=== PATIENT | male | born 1930 | race Caucasian/White ===

== ENCOUNTER 2018-01-12 06:48 | Day surgery (SDC) | payer OTHER ==
[2018-01-12] VITALS (15 sets, daily range): BP systolic 102–139; BP diastolic 53–68
[~2018-01-12] VITALS: Ht 182.9 cm; Wt 95.8 kg
[~2018-01-12 06:48] MED LIST: DOCU-28 PO
[2018-01-12] MEDS ORDERED: normal saline 1000ml 1,000 ML IV PRN (07:20)
[2018-01-12 08:03] LABS: BASOPHILS % (AUTO) 0.4 % (0-1); EOSINOPHILS # (AUTO) 0.2 X10'3 (0-0.9); EOSINOPHILS % (AUTO) 2.5 % (0-6); HEMOGLOBIN 11.8 g/dl (14.0-17.9); LYMPHOCYTES # (AUTO) 0.7 X10'3 (1.1-4.8); LYMPHOCYTES % (AUTO) 8.8 % (21-51); MEAN CORPUSCULAR HEMOGLOBIN 26.5 PG (27.0-31.0); MEAN CORPUSCULAR HGB CONC 32.8 % (33.0-36.5); MEAN CORPUSCULAR VOLUME 80.8 FL (78-98); MEAN PLATELET VOLUME 7.1 FL (7.4-10.4); MONOCYTES # (AUTO) 0.8 X10'3 (0-0.9); MONOCYTES % (AUTO) 10.8 % (2-12); NEUTROPHILS # (AUTO) 5.8 X10'3 (1.8-7.7); NEUTROPHILS % (AUTO) 77.5 % (42-75); PLATELET COUNT 356 X10'3 (140-440); RED BLOOD COUNT 4.46 X10'6 (4.70-6.10); RED CELL DISTRIBUTION WIDTH 16.5 % (11.5-14.5); WHITE BLOOD COUNT 7.4 X10'3 (4.5-11.0)
[2018-01-12] MEDS ORDERED: midazolam 2 mg/2 ml injection IV PRN (08:15)
[2018-01-12] MEDS ORDERED: fentaNYL/PF 50MCG/1 ML 2ML syringe IV PRN (08:15)
[2018-01-12] MEDS ORDERED: LIDOcaine 1%/PF 5ML 10 MG/ML VIAL SQ ONE (08:15)
[2018-01-12] MEDS ORDERED: FLO0.4C PO (08:17)
[2018-01-12] MEDS ORDERED: VALS1TAB81 PO (08:17)
[2018-01-12] MEDS ORDERED: PANT40SU2 PO (08:17)
[2018-01-12] MEDS ORDERED: MONT10TA21 PO (08:17)
[2018-01-12] MEDS ORDERED: AMLO2.5T2 PO (08:17)
[2018-01-12] MEDS ORDERED: ROSU5TAB PO (08:17)
[2018-01-12] MEDS ORDERED: ACET-896 PO (08:17)
[2018-01-12] MEDS ORDERED: CLOP75TA15 PO (08:17)
[2018-01-12] MEDS ORDERED: midazolam 2 mg/2 ml injection ONE (08:55)
[2018-01-12] MEDS ORDERED: LIDOcaine 1%/PF 5ML 10 MG/ML VIAL ONE (08:55)
[2018-01-12] MEDS ORDERED: fentaNYL/PF 50MCG/1 ML 2ML syringe ONE (08:55)
[2018-01-12] MEDS ORDERED: HYDROcodone/acetaminophen 5mg/325mg tablet PO PRN (09:30)
== END 2018-01-12 11:50 | disposition home or self-care (01) ==
LOC: SSTAY O 06:48
PROVIDERS: ATTEND Radiology Diagnostic Radiology
DX: N28.89 Other specified disorders of kidney and ureter (principal); E78.5 Hyperlipidemia, unspecified; I10 Essential (primary) hypertension; K21.9 Gastro-esophageal reflux disease without esophagitis; M19.90 Unspecified osteoarthritis, unspecified site; Z88.0 Allergy status to penicillin; Z79.891 Long term (current) use of opiate analgesic; Z86.73 Personal history of transient ischemic attack (TIA), and cerebral infarction without residual deficits; Z87.891 Personal history of nicotine dependence; Z87.442 Personal history of urinary calculi; Z96.651 Presence of right artificial knee joint; Z72.89 Other problems related to lifestyle; Z98.890 Other specified postprocedural states; Z79.899 Other long term (current) drug therapy
CPT/HCPCS: 36415; 50200; 77012; 85025; 99152; 99153; J2001; J2250; J3010; J7030

== ENCOUNTER 2018-10-03 07:24 | Inpatient (IN) | payer OTHER ==
[~2018-10-03] VITALS: Ht 177.8 cm; Wt 85.0 kg
[~2018-10-03 07:24] MED LIST changes: +ACET-896 PO; +AMLO2.5T2 PO; +CLOP75TA15 PO; -DOCU-28 PO; +FLO0.4C PO; +MONT10TA21 PO; +PANT40SU2 PO; +ROSU5TAB PO; +VALS1TAB81 PO
[2018-10-03] MEDS ORDERED: acetaminophen 325mg tablet PO ONE (07:40)
[2018-10-03 09:20] LABS: BASOPHILS % (AUTO) 0.4 % (0-1); EOSINOPHILS # (AUTO) 0.1 X10'3 (0-0.9); EOSINOPHILS % (AUTO) 0.7 % (0-6); HEMATOCRIT 27.8 % (42.0-52.0); HEMOGLOBIN 9.4 g/dl (14.0-17.9); LYMPHOCYTES # (AUTO) 0.3 X10'3 (1.1-4.8); LYMPHOCYTES % (AUTO) 2.9 % (21-51); MEAN CORPUSCULAR HEMOGLOBIN 30.8 PG (27.0-31.0); MEAN CORPUSCULAR HGB CONC 33.7 g/dL (33.0-36.5); MEAN CORPUSCULAR VOLUME 91.3 FL (78-98); MEAN PLATELET VOLUME 6.9 FL (7.4-10.4); MONOCYTES % (AUTO) 8.6 % (2-12); NEUTROPHILS # (AUTO) 10.1 X10'3 (1.8-7.7); NEUTROPHILS % (AUTO) 87.4 % (42-75); PLATELET COUNT 226 X10'3 (140-440); RED BLOOD COUNT 3.04 X10'6 (4.70-6.10); RED CELL DISTRIBUTION WIDTH 13.5 % (11.5-14.5); WHITE BLOOD COUNT 11.5 X10'3 (4.5-11.0)
[2018-10-03 09:21] LABS: CLARITY,URINE CLOUDY (Clear); COLOR,URINE YELLOW (Yellow); GLUCOSE, URINE NEGATIVE (Neg); KETONES,URINE NEGATIVE (Neg); LEUKOCYTE ESTERASE ,URINE LARGE (Neg); NITRITES, URINE NEGATIVE (Neg); OCCULT BLOOD,URINE LARGE (Neg); PH,URINE 5.5 (4.8-8.0); PROTEIN,URINE 30 mg/dl (Neg); UROBILINOGEN,URINE 0.2 E.U/dL (0.2-1.0)
[2018-10-03 09:28] LABS: UA COLLECTION TYPE FOLEY CATH
[2018-10-03 09:29] LABS: BACTERIA,URINE FEW /HPF (Neg); WBC,URINE 50-100 /HPF (0-4)
[2018-10-03 09:30] LABS: MUCUS STRANDS NONE SEEN /LPF (Neg); SQUAMOUS EPITHELIAL CELL,UR NONE SEEN /LPF (FEW); YEAST MANY /HPF (NEGATIVE)
[2018-10-03 09:33] LABS: INR 1.1 INR; PARTIAL THROMBOPLASTIN TIME 30 SECONDS (22-32)
[2018-10-03 09:35] LABS: ALANINE AMINOTRANSFERASE 60 U/L (12-78); ALBUMIN 2.2 G/DL (3.4-5.0); ALBUMIN/GLOBULIN RATIO 0.6 (1.1-1.5); ALKALINE PHOSPHATASE 153 IU/L (46-116); ANION GAP 7 (8-16); ASPARTATE AMINO TRANSFERASE 35 U/L (10-37); BILIRUBIN,TOTAL 0.6 MG/DL (0.1-1.0); BLOOD UREA NITROGEN 41 MG/DL (7-18); CALCIUM 9.7 MG/DL (8.5-10.1); CHLORIDE 100 MMOL/L (99-107); CREATININE 1.71 MG/DL (0.60-1.10); GLUCOSE 149 MG/DL (70-104); POTASSIUM 4.8 MMOL/L (3.5-5.1); SODIUM 132 MMOL/L (135-145); TOTAL CARBON DIOXIDE 25.5 MMOL/L (24-32); eGFR 38 ML/MIN
[2018-10-03 09:37] LABS: TROPONIN I < 0.04 NG/ML (0.0-0.05)
[2018-10-03] MEDS ORDERED: normal saline 1000ml 1,000 ML IV ONE (10:05)
[2018-10-03] MEDS ORDERED: levoFLOXACIN-Levaquin 750MG/D5 150 ML IV ONE (10:05)
[2018-10-03] MEDS ORDERED: mag hydrox/Alum hydrox/simeth 30ml oral suspension PO PRN (10:55)
[2018-10-03] MEDS ORDERED: magnesium 4gm in 100ml NS 100 ML IV PRN (10:55)
[2018-10-03] MEDS ORDERED: potassium Cl 20 mEq SR tablet PO PRN ×2 (10:55)
[2018-10-03] MEDS ORDERED: magnesium 2GM in 50ml NS 50 ML IV PRN (10:55)
[2018-10-03] MEDS ORDERED: potassium Cl 40MEQ/NS 500ml 500 ML IV PRN ×2 (10:55)
[2018-10-03] MEDS ORDERED: magnesium hydroxide 30ml (MOM) UD suspension PO PRN (10:55)
[2018-10-03] MEDS ORDERED: HYDROcodone/acetaminophen 5mg/325mg tablet PO PRN (10:55)
[2018-10-03] MEDS ORDERED: ondansetron/PF 4mg/2ml inj IV PRN (10:55)
[2018-10-03] MEDS ORDERED: bisacodyl 10mg suppository rectal RC PRN (10:55)
--- NOTE | 2018-10-03 10:57 | NUR ---
I have received patient report from [facility] RN
[2018-10-03 11:25] VITALS: BP 106/57
[2018-10-03] MEDS ORDERED: PRED10TA23 PO (11:53)
[2018-10-03] MEDS ORDERED: ASPI81TA52 PO (11:54)
[2018-10-03] MEDS ORDERED: DIPH-915 PO (11:57)
[2018-10-03] MEDS ORDERED: pneumococcal 23-VAL P-sac vacc 25 mcg/0.5ml vial IMVAC ONE (13:00)
[2018-10-03 16:30] VITALS: BP_SYST 114; BP_SYST 133; BP_DIAS 48; BP_DIAS 53
[2018-10-03] MEDS ORDERED: non-formulary drug (Acetaminophen (Tylenol) 1 TAB) PO SCH (17:00)
--- NOTE | 2018-10-03 17:33 | NUR ---
Dr. Kessler said okay not to use scd's since patient had recent dvt in right thigh, patient will be on lovenox.
[2018-10-03 18:00] VITALS: BP 110/45
[2018-10-03] MEDS ORDERED: acetaminophen 325mg tablet PO PRN (18:10)
--- NOTE | 2018-10-03 18:15 | NUR ---
patient report given to Elizabeth ASIF
[2018-10-03] MEDS: normal saline 1000ml 1,000 ML IV SCH (19:17)
[2018-10-03] MEDS: docusate sod 100mg capsule PO SCH (19:17)
[2018-10-03 20:00] VITALS: BP_SYST 118; BP_SYST 128; BP_SYST 131; BP_DIAS 44; BP_DIAS 47; BP_DIAS 48
[2018-10-04 06:08] LABS: BASOPHILS % (AUTO) 0.2 % (0-1); EOSINOPHILS # (AUTO) 0.1 X10'3 (0-0.9); EOSINOPHILS % (AUTO) 0.6 % (0-6); HEMATOCRIT 23.9 % (42.0-52.0); HEMOGLOBIN 8.2 g/dl (14.0-17.9); LYMPHOCYTES # (AUTO) 0.3 X10'3 (1.1-4.8); LYMPHOCYTES % (AUTO) 3.3 % (21-51); MEAN CORPUSCULAR HEMOGLOBIN 31.2 PG (27.0-31.0); MEAN CORPUSCULAR HGB CONC 34.1 g/dL (33.0-36.5); MEAN CORPUSCULAR VOLUME 91.3 FL (78-98); MEAN PLATELET VOLUME 7.1 FL (7.4-10.4); MONOCYTES # (AUTO) 0.8 X10'3 (0-0.9); MONOCYTES % (AUTO) 8.3 % (2-12); NEUTROPHILS # (AUTO) 8.3 X10'3 (1.8-7.7); NEUTROPHILS % (AUTO) 87.6 % (42-75); PLATELET COUNT 185 X10'3 (140-440); RED BLOOD COUNT 2.61 X10'6 (4.70-6.10); RED CELL DISTRIBUTION WIDTH 13.4 % (11.5-14.5); WHITE BLOOD COUNT 9.5 X10'3 (4.5-11.0)
[2018-10-04 06:22] LABS: ANION GAP 6 (8-16); BLOOD UREA NITROGEN 40 MG/DL (7-18); CHLORIDE 101 MMOL/L (99-107); CREATININE 1.49 MG/DL (0.60-1.10); GLUCOSE 147 MG/DL (70-104); POTASSIUM 4.2 MMOL/L (3.5-5.1); SODIUM 133 MMOL/L (135-145); TOTAL CARBON DIOXIDE 25.7 MMOL/L (24-32)
[2018-10-04 06:23] LABS: ALBUMIN 1.8 G/DL (3.4-5.0); BUN/CREATININE RATIO 26.8 (5.4-32.0); CALCIUM 8.9 MG/DL (8.5-10.1); MAGNESIUM 1.3 MG/DL (1.5-2.4); eGFR 45 ML/MIN
--- NOTE | 2018-10-04 06:28 | NUR ---
REPORT GIVEN TO YEFRI ALAN.
[2018-10-04] MEDS: normal saline 1000ml 1,000 ML IV SCH ×3 (06:57→20:11)
[2018-10-04 07:13] VITALS: BP 106/42
[2018-10-04] MEDS: docusate sod 100mg capsule PO SCH ×2 (07:28→20:05)
[2018-10-04] MEDS: tamsulosin 0.4mg capsule PO SCH (07:28)
[2018-10-04] MEDS: clopidogrel 75mg tablet PO SCH (07:28)
[2018-10-04] MEDS: montelukast 10mg tablet PO SCH (07:28)
[2018-10-04] MEDS: prednisone 10mg tablet PO SCH (07:28)
[2018-10-04] MEDS: pantoprazole 40mg Tablet.DR PO SCH (07:28)
[2018-10-04] MEDS: atorvastatin 20mg tablet PO SCH (07:28)
[2018-10-04] MEDS: aspirin 81mg tablet.DR PO SCH (07:28)
[2018-10-04] MEDS: K and/or MAG REPLACEMENT MC SCH (07:29)
[2018-10-04] MEDS: enoxaparin 40mg/0.4ml syringe SUBCUT SCH (07:30)
[2018-10-04] MEDS: magnesium Cl slow-release 64mg tablet PO PRN ×2 (07:30→20:06)
[2018-10-04 08:00] VITALS: BP_SYST 104; BP_SYST 110; BP_SYST 111; BP_DIAS 41; BP_DIAS 44
[2018-10-04] MEDS ORDERED: levoFLOXACIN-Levaquin 500mg/D5 100 ML IV SCH (08:00)
[2018-10-04 09:24] VITALS: BP 104/44
[2018-10-04 18:00] VITALS: BP 113/50
[2018-10-04] MEDS ORDERED: diphenhydrAMINE 25mg capsule PO PRN (19:45)
[2018-10-04 20:00] VITALS: BP_SYST 117; BP_SYST 133; BP_SYST 135; BP_DIAS 47; BP_DIAS 50; BP_DIAS 58
[2018-10-04 22:00] VITALS: BP 135/58
[2018-10-05 05:45] VITALS: BP 119/55
[2018-10-05] MEDS: acetaminophen 325mg tablet PO PRN (05:59)
[2018-10-05 06:17] LABS: BASOPHILS % (AUTO) 0.2 % (0-1); EOSINOPHILS # (AUTO) 0.1 X10'3 (0-0.9); EOSINOPHILS % (AUTO) 0.8 % (0-6); HEMATOCRIT 24.4 % (42.0-52.0); HEMOGLOBIN 8.1 g/dl (14.0-17.9); LYMPHOCYTES # (AUTO) 0.3 X10'3 (1.1-4.8); LYMPHOCYTES % (AUTO) 3.1 % (21-51); MEAN CORPUSCULAR HEMOGLOBIN 30.5 PG (27.0-31.0); MEAN CORPUSCULAR HGB CONC 33.2 g/dL (33.0-36.5); MEAN CORPUSCULAR VOLUME 91.9 FL (78-98); MONOCYTES # (AUTO) 0.7 X10'3 (0-0.9); NEUTROPHILS % (AUTO) 87.9 % (42-75); PLATELET COUNT 186 X10'3 (140-440); RED BLOOD COUNT 2.66 X10'6 (4.70-6.10); RED CELL DISTRIBUTION WIDTH 13.3 % (11.5-14.5); WHITE BLOOD COUNT 9.1 X10'3 (4.5-11.0)
--- NOTE | 2018-10-05 06:19 | NUR ---
Problems reprioritized. Patient report given, questions answered & plan of care reviewed with araceli Antony.
[2018-10-05 06:28] LABS: ALBUMIN 1.7 G/DL (3.4-5.0); ANION GAP 7 (8-16); BLOOD UREA NITROGEN 39 MG/DL (7-18); BUN/CREATININE RATIO 27.7 (5.4-32.0); CALCIUM 8.7 MG/DL (8.5-10.1); CHLORIDE 100 MMOL/L (99-107); CREATININE 1.41 MG/DL (0.60-1.10); GLUCOSE 150 MG/DL (70-104); MAGNESIUM 1.4 MG/DL (1.5-2.4); POTASSIUM 4.1 MMOL/L (3.5-5.1); SODIUM 130 MMOL/L (135-145); TOTAL CARBON DIOXIDE 23.2 MMOL/L (24-32); eGFR 48 ML/MIN
[2018-10-05] MEDS: K and/or MAG REPLACEMENT MC SCH (08:00)
[2018-10-05] MEDS: montelukast 10mg tablet PO SCH ×2 (08:59→20:07)
[2018-10-05] MEDS: pantoprazole 40mg Tablet.DR PO SCH (09:00)
[2018-10-05] MEDS: atorvastatin 20mg tablet PO SCH (09:00)
[2018-10-05] MEDS: aspirin 81mg tablet.DR PO SCH (09:00)
[2018-10-05] MEDS: lactobacillus rhamnosus 10,000 MMU CELLS/CAPSULE PO SCH ×2 (09:00→20:06)
[2018-10-05] MEDS: docusate sod 100mg capsule PO SCH ×2 (09:00→20:07)
[2018-10-05] MEDS: tamsulosin 0.4mg capsule PO SCH (09:00)
[2018-10-05] MEDS: sulfamethoxazole/trimethoprim DS (800/160mg) tablet PO SCH ×2 (09:01→20:07)
[2018-10-05] MEDS: clopidogrel 75mg tablet PO SCH (09:01)
[2018-10-05] MEDS: prednisone 10mg tablet PO SCH (09:01)
[2018-10-05] MEDS: enoxaparin 40mg/0.4ml syringe SUBCUT SCH (09:04)
[2018-10-05 10:00] VITALS: BP 123/72
[2018-10-05] MEDS: fluconazole-Diflucan 200mg/NS 100 ML IV SCH (10:59)
[2018-10-05] MEDS ORDERED: levoFLOXACIN 250mg tablet PO SCH (11:00)
--- NOTE | 2018-10-05 12:41 | NUR ---
Jewell baloon was deflated, repositioned, reinflated. After 30 minutes patient c/o leaking again. Bladder scan done for 366ml. New 18F catheter placed.
[2018-10-05] MEDS: normal saline 1000ml 1,000 ML IV SCH (15:00)
[2018-10-05 18:00] VITALS: BP 129/59
--- NOTE | 2018-10-05 19:34 | NUR ---
REPORT REC'D FROM YEFRI NUGENT.
[2018-10-05 22:00] VITALS: BP 132/54
[2018-10-06 05:53] LABS: BASOPHILS % (AUTO) 0.4 % (0-1); EOSINOPHILS # (AUTO) 0.1 X10'3 (0-0.9); EOSINOPHILS % (AUTO) 1.2 % (0-6); HEMATOCRIT 24.5 % (42.0-52.0); HEMOGLOBIN 8.3 g/dl (14.0-17.9); LYMPHOCYTES # (AUTO) 0.3 X10'3 (1.1-4.8); MEAN CORPUSCULAR HEMOGLOBIN 30.8 PG (27.0-31.0); MEAN CORPUSCULAR HGB CONC 33.7 g/dL (33.0-36.5); MEAN CORPUSCULAR VOLUME 91.3 FL (78-98); MEAN PLATELET VOLUME 7.2 FL (7.4-10.4); MONOCYTES # (AUTO) 0.6 X10'3 (0-0.9); MONOCYTES % (AUTO) 6.9 % (2-12); NEUTROPHILS % (AUTO) 88.5 % (42-75); PLATELET COUNT 192 X10'3 (140-440); RED BLOOD COUNT 2.69 X10'6 (4.70-6.10); RED CELL DISTRIBUTION WIDTH 13.6 % (11.5-14.5); WHITE BLOOD COUNT 9.1 X10'3 (4.5-11.0)
[2018-10-06 06:00] VITALS: BP 119/59
[2018-10-06 06:04] LABS: ALBUMIN 1.7 G/DL (3.4-5.0); ANION GAP 7 (8-16); BLOOD UREA NITROGEN 32 MG/DL (7-18); BUN/CREATININE RATIO 22.1 (5.4-32.0); CALCIUM 8.6 MG/DL (8.5-10.1); CHLORIDE 101 MMOL/L (99-107); CREATININE 1.45 MG/DL (0.60-1.10); GLUCOSE 141 MG/DL (70-104); MAGNESIUM 1.5 MG/DL (1.5-2.4); POTASSIUM 4.3 MMOL/L (3.5-5.1); SODIUM 131 MMOL/L (135-145); TOTAL CARBON DIOXIDE 22.9 MMOL/L (24-32); eGFR 46 ML/MIN
--- NOTE | 2018-10-06 06:33 | NUR ---
REPORT TO YEFRI NUGENT.
[2018-10-06] MEDS: K and/or MAG REPLACEMENT MC SCH (06:52)
[2018-10-06] MEDS: normal saline 1000ml 1,000 ML IV SCH ×2 (07:50→15:36)
[2018-10-06] MEDS: clopidogrel 75mg tablet PO SCH (08:18)
[2018-10-06] MEDS: pantoprazole 40mg Tablet.DR PO SCH (08:18)
[2018-10-06] MEDS: sulfamethoxazole/trimethoprim DS (800/160mg) tablet PO SCH ×2 (08:18→20:44)
[2018-10-06] MEDS: aspirin 81mg tablet.DR PO SCH (08:18)
[2018-10-06] MEDS: atorvastatin 20mg tablet PO SCH (08:18)
[2018-10-06] MEDS: lactobacillus rhamnosus 10,000 MMU CELLS/CAPSULE PO SCH ×2 (08:18→20:44)
[2018-10-06] MEDS: docusate sod 100mg capsule PO SCH ×2 (08:18→20:44)
[2018-10-06] MEDS: tamsulosin 0.4mg capsule PO SCH (08:18)
[2018-10-06] MEDS: prednisone 10mg tablet PO SCH (08:18)
[2018-10-06] MEDS: enoxaparin 40mg/0.4ml syringe SUBCUT SCH (08:19)
[2018-10-06] MEDS: fluconazole-Diflucan 200mg/NS 100 ML IV SCH (08:26)
[2018-10-06 18:00] VITALS: BP 126/60
--- NOTE | 2018-10-06 18:25 | NUR ---
Patient in room ORTHO 4007. I have received report from Cassia ASIF and had the opportunity to ask questions and assume patient care. Patient awake in bed. Requested bedside table be moved closer. No further needs. Will continue to monitor.
--- NOTE | 2018-10-06 18:47 | NUR ---
Report to Vanita ASIF
[2018-10-06] MEDS: montelukast 10mg tablet PO SCH (20:44)
[2018-10-06 22:00] VITALS: BP 129/51
[2018-10-07 05:55] LABS: BASOPHILS % (AUTO) 0.4 % (0-1); EOSINOPHILS # (AUTO) 0.1 X10'3 (0-0.9); EOSINOPHILS % (AUTO) 1.7 % (0-6); LYMPHOCYTES # (AUTO) 0.3 X10'3 (1.1-4.8); LYMPHOCYTES % (AUTO) 3.9 % (21-51); MEAN CORPUSCULAR HEMOGLOBIN 30.6 PG (27.0-31.0); MEAN CORPUSCULAR HGB CONC 33.4 g/dL (33.0-36.5); MEAN CORPUSCULAR VOLUME 91.8 FL (78-98); MEAN PLATELET VOLUME 7.2 FL (7.4-10.4); MONOCYTES # (AUTO) 0.6 X10'3 (0-0.9); MONOCYTES % (AUTO) 7.4 % (2-12); NEUTROPHILS # (AUTO) 6.5 X10'3 (1.8-7.7); NEUTROPHILS % (AUTO) 86.6 % (42-75); PLATELET COUNT 186 X10'3 (140-440); RED BLOOD COUNT 2.61 X10'6 (4.70-6.10); RED CELL DISTRIBUTION WIDTH 13.5 % (11.5-14.5); WHITE BLOOD COUNT 7.5 X10'3 (4.5-11.0)
[2018-10-07] MEDS: normal saline 1000ml 1,000 ML IV SCH ×2 (05:58→22:38)
[2018-10-07 06:00] VITALS: BP 139/46
[2018-10-07 06:02] LABS: ALBUMIN 1.6 G/DL (3.4-5.0); ANION GAP 4 (8-16); BLOOD UREA NITROGEN 28 MG/DL (7-18); BUN/CREATININE RATIO 21.5 (5.4-32.0); CALCIUM 8.5 MG/DL (8.5-10.1); CHLORIDE 103 MMOL/L (99-107); GLUCOSE 111 MG/DL (70-104); MAGNESIUM 1.5 MG/DL (1.5-2.4); POTASSIUM 4.4 MMOL/L (3.5-5.1); SODIUM 132 MMOL/L (135-145); eGFR 52 ML/MIN
--- NOTE | 2018-10-07 06:36 | NUR ---
Problems reprioritized. Patient report given, questions answered & plan of care reviewed with Lisa ASIF.
--- NOTE | 2018-10-07 06:48 | NUR ---
Reviewed Paxton ASIF's charting and observed his care throughout shift agreed with care/ charting. Provided feedback and assistance.
[2018-10-07] MEDS: pantoprazole 40mg Tablet.DR PO SCH (07:52)
[2018-10-07] MEDS: lactobacillus rhamnosus 10,000 MMU CELLS/CAPSULE PO SCH ×2 (07:52→20:21)
[2018-10-07] MEDS: docusate sod 100mg capsule PO SCH ×2 (07:52→20:22)
[2018-10-07] MEDS: fluconazole 100mg tablet PO SCH (07:52)
[2018-10-07] MEDS: clopidogrel 75mg tablet PO SCH (07:53)
[2018-10-07] MEDS: aspirin 81mg tablet.DR PO SCH (07:53)
[2018-10-07] MEDS: atorvastatin 20mg tablet PO SCH (07:53)
[2018-10-07] MEDS: tamsulosin 0.4mg capsule PO SCH (07:53)
[2018-10-07] MEDS: enoxaparin 40mg/0.4ml syringe SUBCUT SCH (07:54)
[2018-10-07] MEDS: sulfamethoxazole/trimethoprim DS (800/160mg) tablet PO SCH ×2 (07:54→20:22)
[2018-10-07] MEDS: prednisone 10mg tablet PO SCH (07:54)
[2018-10-07] MEDS: K and/or MAG REPLACEMENT MC SCH (08:00)
[2018-10-07 08:19] VITALS: BP 139/46
--- NOTE | 2018-10-07 11:32 | NUR ---
Student documentation: I have reviewed all interventions, assessments performed and documented by Blanche Christina. Student Medication Administration: For this medication-pass time frame, all medication were reviewed, dispensed, administered and documented per hospital policy by Blanche Christina.
[2018-10-07 18:00] VITALS: BP 120/54
--- NOTE | 2018-10-07 18:31 | NUR ---
Patient in room ORTHO 4007. I have received report from Lisa ASIF and had the opportunity to ask questions and assume patient care.
[2018-10-07] MEDS: montelukast 10mg tablet PO SCH (20:22)
[2018-10-07 20:59] VITALS: BP_SYST 111; BP_SYST 118; BP_SYST 119; BP_DIAS 57; BP_DIAS 67
[2018-10-07 22:00] VITALS: BP 118/57
[2018-10-08] MEDS: normal saline 1000ml 1,000 ML IV SCH (04:13)
[2018-10-08 04:37] LABS: BASOPHILS % (AUTO) 0.3 % (0-1); EOSINOPHILS # (AUTO) 0.1 X10'3 (0-0.9); EOSINOPHILS % (AUTO) 1.2 % (0-6); HEMATOCRIT 24.3 % (42.0-52.0); HEMOGLOBIN 8.2 g/dl (14.0-17.9); LYMPHOCYTES # (AUTO) 0.3 X10'3 (1.1-4.8); LYMPHOCYTES % (AUTO) 2.9 % (21-51); MEAN CORPUSCULAR HEMOGLOBIN 30.8 PG (27.0-31.0); MEAN CORPUSCULAR HGB CONC 33.9 g/dL (33.0-36.5); MEAN PLATELET VOLUME 7.1 FL (7.4-10.4); MONOCYTES # (AUTO) 0.8 X10'3 (0-0.9); MONOCYTES % (AUTO) 8.4 % (2-12); NEUTROPHILS # (AUTO) 7.9 X10'3 (1.8-7.7); NEUTROPHILS % (AUTO) 87.2 % (42-75); PLATELET COUNT 214 X10'3 (140-440); RED BLOOD COUNT 2.68 X10'6 (4.70-6.10); RED CELL DISTRIBUTION WIDTH 13.8 % (11.5-14.5); WHITE BLOOD COUNT 9.1 X10'3 (4.5-11.0)
[2018-10-08 04:47] LABS: ALBUMIN 1.7 G/DL (3.4-5.0); ANION GAP 7 (8-16); BLOOD UREA NITROGEN 28 MG/DL (7-18); CALCIUM 9.1 MG/DL (8.5-10.1); CHLORIDE 101 MMOL/L (99-107); CREATININE 1.27 MG/DL (0.60-1.10); GLUCOSE 101 MG/DL (70-104); MAGNESIUM 1.5 MG/DL (1.5-2.4); POTASSIUM 4.8 MMOL/L (3.5-5.1); SODIUM 132 MMOL/L (135-145); TOTAL CARBON DIOXIDE 23.7 MMOL/L (24-32); eGFR 54 ML/MIN
[2018-10-08] MEDS: acetaminophen 325mg tablet PO PRN (05:11)
--- NOTE | 2018-10-08 06:25 | NUR ---
Problems reprioritized. Patient report given, questions answered & plan of care reviewed with Ramandeep ASIF.
[2018-10-08 06:30] VITALS: BP 131/59
--- NOTE | 2018-10-08 06:30 | NUR ---
I have received patient report from Daksha ASIF
[2018-10-08] MEDS: atorvastatin 20mg tablet PO SCH (07:49)
[2018-10-08] MEDS: fluconazole 100mg tablet PO SCH (07:49)
[2018-10-08] MEDS: pantoprazole 40mg Tablet.DR PO SCH (07:49)
[2018-10-08] MEDS: aspirin 81mg tablet.DR PO SCH (07:49)
[2018-10-08] MEDS: sulfamethoxazole/trimethoprim DS (800/160mg) tablet PO SCH (07:49)
[2018-10-08] MEDS: lactobacillus rhamnosus 10,000 MMU CELLS/CAPSULE PO SCH ×2 (07:49→19:53)
[2018-10-08] MEDS: tamsulosin 0.4mg capsule PO SCH (07:49)
[2018-10-08] MEDS: prednisone 10mg tablet PO SCH (07:49)
[2018-10-08] MEDS: clopidogrel 75mg tablet PO SCH (07:49)
[2018-10-08] MEDS: enoxaparin 40mg/0.4ml syringe SUBCUT SCH (07:50)
[2018-10-08] MEDS: docusate sod 100mg capsule PO SCH ×2 (07:50→19:53)
[2018-10-08 08:00] VITALS: BP 125/68
[2018-10-08] MEDS: K and/or MAG REPLACEMENT MC SCH (08:00)
[2018-10-08 10:00] VITALS: BP 126/65
[2018-10-08] MEDS: levoFLOXACIN-Levaquin 250mg/D5 50 ML IV SCH (11:37)
--- NOTE | 2018-10-08 13:32 | NUR ---
Initial: Pt admitted w/ weakness, UTI, hx L renal cell carcinoma. CT revealed multiple cyst lesions vs abscess vs malignancy per MD note. PO 100% regular meals meeting needs. LBM 10/03 receiving routine colace and refused MoM today; power pudding w/ dinner tonight for bowel care. Will continue to monitor. Rec: 1. continue regular diet; power pudding 1x w/ dinner for constipation 2. routine bowel care 3. wt per rx Addendum: 10/08/18 at [address] Amended: Links added.
[2018-10-08 18:00] VITALS: BP 124/51
--- NOTE | 2018-10-08 18:22 | NUR ---
Patient report given to Fahad ASIF
--- NOTE | 2018-10-08 19:00 | NUR ---
Patient in room ORTHO 4007. I have received report from Idalia ASIF and had the opportunity to ask questions and assume patient care.
[2018-10-08] MEDS: montelukast 10mg tablet PO SCH (19:53)
[2018-10-08 20:00] VITALS: BP_SYST 120; BP_SYST 124; BP_SYST 138; BP_DIAS 55; BP_DIAS 57; BP_DIAS 60
[2018-10-09] MEDS: acetaminophen 325mg tablet PO PRN (05:58)
[2018-10-09 06:16] VITALS: BP 116/56
[2018-10-09 08:00] VITALS: BP_SYST 108; BP_SYST 109; BP_SYST 116; BP_DIAS 41; BP_DIAS 43; BP_DIAS 52
[2018-10-09] MEDS: clopidogrel 75mg tablet PO SCH (08:39)
[2018-10-09] MEDS: lactobacillus rhamnosus 10,000 MMU CELLS/CAPSULE PO SCH (08:40)
[2018-10-09] MEDS: pantoprazole 40mg Tablet.DR PO SCH (08:40)
[2018-10-09] MEDS: enoxaparin 40mg/0.4ml syringe SUBCUT SCH (08:40)
[2018-10-09] MEDS: tamsulosin 0.4mg capsule PO SCH (08:40)
[2018-10-09] MEDS: atorvastatin 20mg tablet PO SCH (08:40)
[2018-10-09] MEDS: aspirin 81mg tablet.DR PO SCH (08:40)
[2018-10-09] MEDS: docusate sod 100mg capsule PO SCH (08:40)
[2018-10-09] MEDS: prednisone 10mg tablet PO SCH (08:40)
[2018-10-09] MEDS: fluconazole 100mg tablet PO SCH (08:40)
[2018-10-09] MEDS: levoFLOXACIN-Levaquin 250mg/D5 50 ML IV SCH (08:41)
[2018-10-09] MEDS ORDERED: magnesium Cl slow-release 64mg tablet PO PRN (10:40)
[2018-10-09] MEDS ORDERED: FLUC100T9 PO (10:42)
[2018-10-09] MEDS ORDERED: LEVO250T58 PO (10:42)
[2018-10-09] MEDS ORDERED: MAGNESIUM 4 GM IN 100ML BAG IV PRN (10:45)
[2018-10-09] MEDS ORDERED: MAGNESIUM 2 GRAMS IN 50ML BAG IV PRN (10:45)
--- NOTE | 2018-10-09 12:20 | NUR ---
Patient discharged with his taken out in wheel chair with staff. His prescriptions were called in and he had his clothes with him. Patient had a picture of right hip on admit non-open stage one, no picture taken at discharge pressure area not open. Opti-foam for protection.
== END 2018-10-09 12:20 | disposition home health service (06) | DRG 871 ==
LOC: ER 07:24 → ORTHO 4S 11:15 → CMPBEDREQ 10-05 19:33
PROVIDERS: ADMIT Internal Medicine; ATTEND Internal Medicine
DX: A41.9 Sepsis, unspecified organism (principal); E43 Unspecified severe protein-calorie malnutrition; C64.2 Malignant neoplasm of left kidney, except renal pelvis; C77.9 Secondary and unspecified malignant neoplasm of lymph node, unspecified; N39.0 Urinary tract infection, site not specified; N17.9 Acute kidney failure, unspecified; E87.1 Hypo-osmolality and hyponatremia; J90 Pleural effusion, not elsewhere classified; B37.9 Candidiasis, unspecified; D63.8 Anemia in other chronic diseases classified elsewhere; E78.00 Pure hypercholesterolemia, unspecified; G89.29 Other chronic pain; E83.42 Hypomagnesemia; E86.0 Dehydration; Z66 Do not resuscitate; I12.9 Hypertensive chronic kidney disease with stage 1 through stage 4 chronic kidney disease, or unspecified chronic kidney disease; D64.9 Anemia, unspecified; K21.9 Gastro-esophageal reflux disease without esophagitis; K44.9 Diaphragmatic hernia without obstruction or gangrene; N18.3 Chronic kidney disease, stage 3 (moderate); Z79.02 Long term (current) use of antithrombotics/antiplatelets; Z79.2 Long term (current) use of antibiotics; Z28.21 Immunization not carried out because of patient refusal; Z79.899 Other long term (current) drug therapy; Z86.73 Personal history of transient ischemic attack (TIA), and cerebral infarction without residual deficits; Z87.440 Personal history of urinary (tract) infections; Z87.891 Personal history of nicotine dependence; Z68.26 Body mass index [BMI] 26.0-26.9, adult; Z88.0 Allergy status to penicillin
CPT/HCPCS: 36415; 71045; 74176; 80048; 80053; 81001; 83605; 83735; 84145; 84484; 85025; 85610; 85730; 87040; 87070; 87077; 87088; 87186; 93005; 96365; 97110; 97116; 97161; 97530; 99285; G0378; J1450; J1650; J1956; J7030; J7512; Q0163